=== PATIENT | male | born 1965 | race Caucasian/White ===

== ENCOUNTER → 2017-10-10 | Outpatient (CLI) | payer BC, OTHER | LOC: RESP 09:38 | PROVIDERS: ATTEND Orthopaedic Surgery | DX: Z01.818 Encounter for other preprocedural examination (principal) ==

== ENCOUNTER → 2017-10-10 | Outpatient (CLI) | payer BC, OTHER ==
--- NOTE | 2017-10-10 09:15 | RAD ---
4V right knee. Indication: KNEE PAIN Comparison: None. Impression: No acute fracture. Tricompartmental osteoarthritis noted and most pronounced medially where there are severe changes and [id number] appearance. Tiny suprapatellar knee effusion. MRI could better evaluate as clinically indicated. Multiple foci of ossification posterior to the joint capsule and lateral view. Chondrocalcinosis of the menisci suspected. Electronically signed by: Geo Wang MD 10/10/2017 9:14 AM [facility]
--- NOTE | 2017-10-10 09:15 | RAD ---
Two-view pelvis. Indication: HIP PAIN Comparison: None. Impression: No acute fracture. Mild pubic symphysis osteoarthritis. Electronically signed by: Geo Wang MD 10/10/2017 9:15 AM [facility]
== END ==
LOC: RAD 08:28
PROVIDERS: ATTEND Orthopaedic Surgery
DX: M17.11 Unilateral primary osteoarthritis, right knee (principal); M25.561 Pain in right knee; M25.551 Pain in right hip

== ENCOUNTER 2017-11-04 05:32 | Inpatient (IN) | payer BC, OTHER ==
--- NOTE | 2017-11-03 08:24 | HP ---
CHIEF COMPLAINT: Right knee pain. HISTORY OF PRESENT ILLNESS: Thierry is a 52-year-old male with a history of pain in the right knee that has been going on for years. He has had knee arthroscopy previously. He has had other injections as well. He denies any recent trauma, any neurologic symptoms or radiation of pain. Because of failure of conservative measures, he has requested operative intervention. After discussing the risks, benefits and alternatives to that, the patient has given informed consent. PAST SURGICAL HISTORY: 1. Knee arthroscopy. 2. Partial patellectomy. MEDICATIONS: None. ALLERGIES: NO KNOWN DRUG ALLERGIES. CODE STATUS: Full code. IMMUNIZATIONS: Up to date. SOCIAL HISTORY: The patient does not smoke or use any illicit drugs. He does drink one or two beers daily. FAMILY HISTORY: None pertinent to today's complaint. REVIEW OF SYSTEMS: Negative except as indicated in the History of Present Illness. PHYSICAL EXAMINATION: VITAL SIGNS: Blood pressure 126/78. Pulse 70. Height 6'. Weight 245 pounds. MENTAL STATUS: The patient is awake, alert, and is able to give a good history and participate in the physical. The patient is oriented to person, place and time. SKIN: Normal tone and turgor. HEENT: Normocephalic, atraumatic. Pupils equal, round and reactive. Mucosal membranes are moist. NECK: Normal range of motion. No thyromegaly, no lymphadenopathy. CHEST: Normal respiratory excursion. CARDIAC: Regular rate and rhythm. No murmurs, rubs or gallops. MUSCULOSKELETAL: The bilateral upper extremities show full active range of motion without pain. Sensation is intact. They are warm and well perfused. There is no deformity or crepitus. The left lower extremity shows full range of motion of the hip. The knee has full extension with flexion to about 125 degrees. There is no varus/valgus deformity. Sensation is intact. Strength is 5/5. The right lower extremity shows full range of motion of the hip. He has a slight varus deformity. Sensation is intact. It is warm and well perfused. Strength is 5/5. He has crepitus throughout his range of motion and diffusely. IMAGING: X-rays show advanced arthritis with varus deformity. ASSESSMENT: 1. Arthritis. PLAN: The plan at this point is for total knee arthroplasty. He has failed conservative measures and has requested that. We have discussed the risks, benefits, and alternatives to that and the patient has given informed consent. [facility][id number] [facility]
[2017-11-04] MEDS ORDERED: LACTATED RINGERS 1,000 ML ONE ×2 (05:47→06:09)
[2017-11-04] MEDS ORDERED: SODIUM CHL 0.9% 100ML MINI-BAG 100 ML IVPB ONE (05:47)
[2017-11-04] MEDS ORDERED: VANCOMYCIN HCL INJ 1,000 MG VIAL IVPB ONE ×4 (05:47→19:48)
[2017-11-04] MEDS ORDERED: ceFAZolin SODIUM 1 GM VIAL ONE ×2 (05:48→06:46)
[2017-11-04] MEDS ORDERED: SODIUM CHLORIDE 0.9% 250ML 250 ML ONE ×3 (05:48→19:48)
[2017-11-04] MEDS ORDERED: TRANEXAMIC ACID 1,000 MG/10 ML VIAL ONE (05:54)
[2017-11-04] MEDS ORDERED: SODIUM CHLORIDE 0.9% 100ML 100 ML IVPB ONE (05:59)
[2017-11-04] MEDS ORDERED: MORPHINE SULFATE *EPIDURAL* 0.5 MG/ML VIAL ONE (06:08)
[2017-11-04] MEDS ORDERED: MIDAZOLAM INJ 5 MG/5 ML VIAL ONE (06:08)
[2017-11-04] MEDS ORDERED: fentaNYL CITRATE INJ 50 MCG/ML AMP ONE (06:09)
[2017-11-04] MEDS ORDERED: ALUMINUM & MAGNESIUM HYDROXIDE 30 ML UD PO PRN (06:57)
[2017-11-04] MEDS ORDERED: ONDANSETRON INJ 4 MG/2 ML VIAL IV PRN (06:57)
[2017-11-04] MEDS ORDERED: MAGNESIUM HYDROXIDE 30 ML UD PO PRN (06:57)
[2017-11-04] MEDS ORDERED: SODIUM CHLORIDE 0.9% (FLUSH) 10 ML SYG IV PRN (06:57)
[2017-11-04] MEDS ORDERED: MORPHINE SULFATE INJ 10 MG/ML VIAL IM PRN (06:57)
[2017-11-04] MEDS ORDERED: ZOLPIDEM TARTRATE 5 MG TAB PO PRN (06:57)
[2017-11-04] MEDS ORDERED: BISACODYL SUPPOSITORY 10 MG PR PRN (06:57)
[2017-11-04] MEDS ORDERED: PROMETHAZINE HCL INJ 12.5 MG in SODIUM CHLORIDE 0.9% 50ML 50 ML IVPB PRN (06:57)
[2017-11-04] MEDS ORDERED: ACETAMINOPHEN 325 MG TAB PO PRN (06:57)
[2017-11-04] MEDS ORDERED: ACETAMINOPHEN 500 MG TAB PO PRN (06:57)
[2017-11-04] MEDS ORDERED: NALOXONE HCL INJ 0.4 MG/ML VIAL IV PRN (06:57)
[2017-11-04] MEDS ORDERED: TRANEXAMIC ACID INJ 1,000 MG in SODIUM CHLORIDE 0.9% 100ML 100 ML IVPB ONE (06:57)
[2017-11-04] MEDS ORDERED: BENZOCAINE-MENTH LOZ (CEPACOL) 1 EA LOZ MT PRN (06:57)
[2017-11-04] MEDS ORDERED: TEMAZEPAM 15 MG CAP PO PRN (06:57)
[2017-11-04] MEDS ORDERED: PROMETHAZINE HCL INJ 25 MG in SODIUM CHLORIDE 0.9% 50ML 50 ML IVPB PRN (06:57)
[2017-11-04] MEDS ORDERED: MORPHINE SULFATE INJ 10 MG/ML VIAL IV PRN (06:57)
[2017-11-04] MEDS ORDERED: MORPHINE PCA 1 MG/ML 100 ML BAG IVPB SCH (07:00)
[2017-11-04] MEDS ORDERED: BUPIVACAINE 0.25% W/EPI 50 ML VIAL INJ ONE (08:45)
[2017-11-04] MEDS ORDERED: MAGNESIUM OXIDE 400 MG TAB PO SCH (09:00)
[2017-11-04] MEDS ORDERED: PROPOFOL 200 MG/20 ML VIAL IV ONE (10:00)
[2017-11-04] MEDS ORDERED: LIDOCAINE 1% 10 ML VIAL INJ ONE (10:00)
[2017-11-04] MEDS ORDERED: DEXAMETHASONE INJ 10 MG/ML VIAL IV ONE (10:00)
[2017-11-04] MEDS ORDERED: ONDANSETRON INJ 4 MG/2 ML VIAL IV ONE (10:00)
[2017-11-04] MEDS: CELECOXIB 100 MG CAP PO SCH ×2 (10:25→17:14)
[2017-11-04] MEDS ORDERED: diphenhydrAMINE HCL 50 MG/ML VIAL IM PRN (10:57)
[2017-11-04] MEDS ORDERED: diphenhydrAMINE HCL 25 MG CAP PO PRN (10:57)
[2017-11-04] MEDS ORDERED: diphenhydrAMINE HCL 50 MG/ML VIAL IV PRN (10:57)
[2017-11-04] MEDS: DEX 5% W/NACL 0.45% 1000ML 1,000 ML IVS PRN (11:06)
[2017-11-04] MEDS: IV SET AND CAP CHANGE INJ INJ SCH (12:21)
--- NOTE | 2017-11-04 14:39 | CONS ---
SUPERVISING PHYSICIAN: Juan Pablo Castro MD DATE OF CONSULTATION: 11/04/17 REASON FOR CONSULTATION: Postoperative right total knee arthroplasty. HISTORY OF PRESENT ILLNESS: Mr. Lombardi is a 52-year-old male patient that has a longstanding history of knee pain for many years. 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 He denied any trauma, but has failed to have any significant relief from injections or physical therapy and other conservative measures. He requested operative intervention to help with pain control to assist with returning the patient back to a status such that he could function without any pain. He had an elective right total knee arthroplasty on 11/04/17 and was seen in the immediate postoperative state. At time of admission, the patient was alert with good pain control. PAST MEDICAL HISTORY: No major medical history. PAST SURGICAL HISTORY: 1. Right knee arthroscopy. 2. Partial patellectomy. CURRENT MEDICATIONS: No chronic medications. ALLERGIES: NO KNOWN DRUG ALLERGIES. FAMILY HISTORY: Noncontributory. SOCIAL HISTORY: The patient lives in [place], [place]. 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 He does not that he drinks on an occasional basis, typically beer, and does utilize smokeless tobacco, but has never smoked tobacco. He denies any illicit drug use. REVIEW OF SYSTEMS: CONSTITUTIONAL: Denies any weight loss, weakness. HEENT: Denies earaches, sore throats, nasal congestion, headaches. RESPIRATORY: Denies cough, shortness of breath, wheezing. CARDIOVASCULAR: Denies chest pain, palpitations or syncopal episodes. GASTROINTESTINAL: No reported nausea, vomiting, diarrhea, constipation or bowel habits changes. GENITOURINARY: Denies dysuria, hematuria, polyuria, nocturia or other urinary symptoms. MUSCULOSKELETAL: As noted in history of present illness, right knee requiring surgery. NEUROLOGIC: Denies any neurologic deficits such as dizziness, seizure or syncopal episodes or other localizing or focalizing neuro deficits. PHYSICAL EXAMINATION: VITAL SIGNS: Temperature 97.8. Pulse 68. Blood pressure 104/64. Respirations 14. Saturation 98% on room air. Admission 108.8 kg. GENERAL: The patient is seen in immediate postoperative condition and was alert and oriented times 3. He appeared to be comfortable and in no acute distress. HEENT: Tympanic membranes clear bilaterally. Oropharynx is pink, moist without any lesions. NECK: Supple, nontender with full range of motion. No jugular venous distention noted. RESPIRATORY: Lungs clear to auscultation bilaterally without any rhonchi, wheezes, or rales. CARDIOVASCULAR: Regular rate and rhythm without any appreciable murmurs, gallops, or rubs. ABDOMEN: Soft, nontender. Hypoactive bowel sounds. EXTREMITIES: Right knee has large surgical dressing in place with Iceman. Distally, pulses were strong with brisk capillary refill. NEUROLOGIC: The patient is alert and oriented times three. Cranial nerves II- XII are grossly intact. Facial features are symmetrical. Extraocular movements are within normal limits. There is no nystagmus noted. LABORATORY: Postoperative hemoglobin and hematocrit pending. ASSESSMENT: 1. Postoperative day 0 for an elective right total knee arthroplasty, having failed to respond to outpatient conservative treatment measures with surgery performed by Dr. Nikolas Bill, orthopedic surgeon. 2. Nicotine addiction with smokeless tobacco. PLAN: We will follow the patient as he continues with his recovery and physical therapy efforts along with physical therapy and orthopedic services. Discussion with family and patient. Plans are at discharge to continue with [facility]. We will encourage the patient to utilize incentive spirometry and do deep breathing exercises as well as exercise lower extremities as much as possible to prevent postoperative complications such as atelectasis or DVT. He remains on DVT prophylaxis per postoperative orthopedic protocol. We will anticipate discharge in the next 2 to 3 days pending the patient's progression with physical therapy. Until then, we will continue to monitor the patient closely and treat appropriately. #[id number] [facility]
[2017-11-04] MEDS ORDERED: ceFAZolin SODIUM 2 GRAMS PREMI 50 ML IVPB ONE ×2 (15:48→19:47)
[2017-11-04] MEDS: ceFAZolin SODIUM 2 GRAMS PREMI 2 GM in PREMIX BAG 1 BAG IVPB SCH (16:09)
[2017-11-04] MEDS: VANCOMYCIN HCL INJ 1,000 MG in SODIUM CHLORIDE 0.9% 250ML 250 ML IVPB SCH (17:16)
[2017-11-04] MEDS: ENOXAPARIN SODIUM 30 MG/0.3 ML SYG SUBCU SCH (21:34)
[2017-11-04] MEDS: DOCUSATE CALCIUM 240 MG CAP PO SCH (21:34)
--- NOTE | 2017-11-04 23:24 | PCM.CORE ---
Physician DVT/VTE - Prophylaxis Currently: Patient already on anticoagulation therapy - Nurse DVT Assessment & Total Each Risk Factor Represents 5 Points: Elective Arthtroplasty Each Risk Factor Represents 1 Point: Hx of smoking past year Each Risk Factor is 1 Point: Obesity (BMI >25) DVT Assessment Score: 7 - 5 or more Very High Risk Treatments: Early Ambulation *, Sequential Compression Device Pharmacological: Enoxaparin 30mg SQ BID
[2017-11-05] MEDS: ceFAZolin SODIUM 2 GRAMS PREMI 2 GM in PREMIX BAG 1 BAG IVPB SCH ×2 (00:08→08:27)
[2017-11-05] MEDS: HYDROcodone 5MG/APAP 325MG 1 EA TAB PO PRN ×6 (00:36→20:22)
[2017-11-05] MEDS: VANCOMYCIN HCL INJ 1,000 MG in SODIUM CHLORIDE 0.9% 250ML 250 ML IVPB SCH (06:27)
--- NOTE | 2017-11-05 07:25 | RAD ---
EXAM DESCRIPTION: Knee,Right 2 or More Views CLINICAL HISTORY: 52 years Male, TKA COMPARISON: None. FINDINGS: 2 views of the right knee show postoperative changes related to recent right knee arthroplasty. No loosening or other hardware complication is identified. No periprosthetic fracture is identified. Gas and fluid in the right knee joint space is consistent with recent surgery. IMPRESSION: Postoperative changes in the right knee without apparent hardware or other surgical complication. Electronically signed by: Renny Barnes MD 11/05/2017 7:23 AM CDT
[2017-11-05] MEDS ORDERED: ceFAZolin SODIUM 2 GRAMS PREMI 50 ML IVPB ONE (07:48)
[2017-11-05] MEDS: CELECOXIB 100 MG CAP PO SCH ×2 (07:53→16:29)
[2017-11-05] MEDS: MAGNESIUM OXIDE 400 MG TAB PO SCH (08:24)
[2017-11-05] MEDS: ENOXAPARIN SODIUM 30 MG/0.3 ML SYG SUBCU SCH ×2 (08:25→21:53)
--- NOTE | 2017-11-05 08:45 | PN ---
DATE: 11/04/17 POSTOPERATIVE CHECK SUBJECTIVE: Mr. Lombardi is doing well and has good pain control at this point. OBJECTIVE: Afebrile. Vital signs stable. Dressing is clean, dry and intact. ASSESSMENT: Status post total knee arthroplasty. PLAN: He will begin weight-bearing as tolerated on postoperative day1. #[id number] [facility]
--- NOTE | 2017-11-05 08:50 | OP ---
DATE OF PROCEDURE: 11/04/17 PREOPERATIVE DIAGNOSIS: 1. Right knee osteoarthritis. POSTOPERATIVE DIAGNOSIS: 1. Right knee osteoarthritis. PROCEDURE: 1. Right total knee arthroplasty. SURGEON: Nikolas Bill MD. RECRUITMENT COORDINATOR: Taurus Carballo CST, SA-C. ANESTHESIA: General. COMPLICATIONS: None. FINDINGS: Severe osteoarthritis with varus deformity. INDICATION: Mr. Lombardi has a long history of pain in the knee that has been refractory to conservative measures. He requested operative intervention secondary to failure of conservative measures. After discussing the risks, benefits and alternatives to that, the patient has given informed consent for total knee arthroplasty. PROCEDURE: The patient was brought to the Operating Room and placed in supine position. General anesthesia was induced and the patient's leg was sterilely prepped and draped. Following prepping and draping, the distal femur was exposed and using an intramedullary guide, the distal femoral cut was made. The appropriate sized cutting block was measured, pinned into place, and the anterior, posterior, and chamfer cuts were made. The ACL was transected and the tibia was subluxed. Both the medial and lateral menisci were removed. An intramedullary guide was used to make the proximal tibial cut. The appropriate sized base plate was placed and a trial polyethylene was placed. The trial femur was placed, the knee was reduced, and the knee was taken through a range of motion. The knee was stable in anterior, posterior, varus and valgus stress. The patella tracked anatomically without evidence of subluxation or dislocation. After trialing, the trial components were removed and the bony surfaces were thoroughly irrigated with saline. Following irrigation, the surfaces were dried and the final components were cemented into place. The excess cement was removed and the remaining cement was allowed to cure. The knee was again taken through a range of motion to confirm stability. The wound was then irrigated with saline and closure was performed using PDS to approximate the arthrotomy followed by closure of the subcutaneous tissues with a combination of running and interrupted Monocryl sutures. Sterile dressing was placed. The patient was awoken from anesthesia and taken to Recovery. POSTOPERATIVE INSTRUCTIONS: The patient will be weight-bearing as tolerated on postoperative day 1. COMPONENTS: [place] Triathlon knee, size 6 femur, size 6 tibia, 11 mm insert. #[id number] [facility]
[2017-11-05] MEDS: CYCLOBENZAPRINE HCL 10 MG TAB PO PRN ×2 (12:13→20:23)
[2017-11-05] MEDS: DEX 5% W/NACL 0.45% 1000ML 1,000 ML IVS PRN (13:42)
--- NOTE | 2017-11-05 13:59 | PN ---
SUPERVISING PHYSICIAN: Juan Pablo Castro MD DATE: 11/05/17 SUBJECTIVE: The patient is up to the bedside chair this morning. He has had very good control of his pain. He does continue to have some itching with the morphine, but refuses Benadryl as it makes him sleepy until at least after his therapy. He has had no nausea or vomiting and actually had gas, but has not yet had a bowel movement. OBJECTIVE: VITAL SIGNS: Temperature 98.1. Pulse 64. Blood pressure 126/75. Respirations 16. Saturation 99% on room air. I&Os show negative balance of 2460 with 1990 in, 4450 out. Weight 108.8 kg. CHEST: Lungs clear to auscultation bilaterally. HEART: Regular rate and rhythm. ABDOMEN: Obese, but soft and nontender. Positive bowel sounds. EXTREMITIES: Right knee continues with a bulky dressing and Gamal bandage. Pulses distally are strong with brisk capillary refill. NEUROLOGIC: Alert and oriented times three. LABORATORY: Postoperative hemoglobin and hematocrit this morning shows hemoglobin 12.7, hematocrit 36.9. ASSESSMENT: 1. Postoperative day 1 for a right total knee arthroplasty, having failed to respond to outpatient conservative treatment measures requiring surgical intervention for symptom control with surgery performed by Dr. Nikolas Bill, orthopedic surgeon. 2. Nicotine addiction with smokeless tobacco. PLAN: We will continue to follow the patient as he progresses through his physical therapy efforts under the direction of physical therapy and orthopedic services. The patient continues to have some mild itching and again refuses Benadryl. We will encourage continued pain management to assist with his pain control and help in facilitating his physical therapy efforts. He is again encouraged to stop using smokeless tobacco. Once discharged, the patient has expressed that he is willing to do physical therapy at the [facility]. Until the patient is clinically stable and improved and met goals, we will continue to monitor the patient closely and treat appropriately. #[id number] [facility]
[2017-11-05] MEDS: DOCUSATE CALCIUM 240 MG CAP PO SCH (20:22)
[2017-11-06] MEDS: HYDROcodone 5MG/APAP 325MG 1 EA TAB PO PRN ×3 (02:28→12:35)
[2017-11-06] MEDS: CELECOXIB 100 MG CAP PO SCH ×2 (08:03→16:24)
[2017-11-06] MEDS: CYCLOBENZAPRINE HCL 10 MG TAB PO PRN ×2 (08:03→16:24)
[2017-11-06] MEDS: MAGNESIUM OXIDE 400 MG TAB PO SCH (08:03)
[2017-11-06] MEDS: SODIUM CHLORIDE 0.9% (FLUSH) 10 ML SYG IV SCH ×2 (08:04→21:07)
[2017-11-06] MEDS: ENOXAPARIN SODIUM 30 MG/0.3 ML SYG SUBCU SCH ×2 (09:31→21:06)
[2017-11-06] MEDS: traMADol HCL 50 MG TAB PO PRN ×2 (10:37→18:02)
--- NOTE | 2017-11-06 13:08 | PN ---
DATE: 11/06/17 SUBJECTIVE: Mr. Lombardi is doing well. He has great pain control right now. OBJECTIVE: Afebrile. Vital signs stable. Wound is clean. There are no signs or symptoms of infection. ASSESSMENT: Status post total knee arthroplasty. PLAN: At this point, the plan for him is to continue with weight-bearing as tolerated and increasing range of motion. #[id number] [facility]
--- NOTE | 2017-11-06 14:12 | PN ---
DATE: 11/06/17 SUBJECTIVE: The patient now is second day postoperative replacement of his right total knee with arthroplastic procedure performed by Dr. Bill, orthopedic surgeon. He tolerated the procedure quite well. His pain today is slightly better than it was yesterday. Still significant discomfort when trying to hold the leg extended against gravity, but tolerating weight-bearing fairly well. Again encouraged to take deep breaths and to actively contract and relax muscles to assist with DVT prophylaxis. The patient is awake and alert. OBJECTIVE: VITAL SIGNS: Afebrile. Blood pressure 121/69. Pulse 75. Pulse oximetry 96% on room air. GENERAL: The patient is awake and alert. LUNGS: Clear. HEART: Regular. ABDOMEN: Soft. EXTREMITIES: Wound of the right knee is clean with dressing having been changed earlier this morning with no significant drainage noted. The patient continues with physical therapy and is up to 100 degrees of flexion. ASSESSMENT: 1. Postoperative day 2 for a right total knee arthroplasty, having failed to respond to outpatient therapy, requiring surgical intervention to assist with symptom control, performed by Dr. Nikolas Bill, orthopedic surgeon. 2. Chronic nicotine addiction, currently with smokeless tobacco, encouraged to stop. PLAN: Continue with rehabilitation until he is able to safely return home. 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 Close followup suggested. #[id number] [facility]
[2017-11-06] MEDS: HYDROcodone 7.5MG/APAP 325MG 1 EA TAB PO PRN ×2 (16:23→21:06)
[2017-11-06] MEDS: DOCUSATE CALCIUM 240 MG CAP PO SCH (21:06)
[2017-11-07] MEDS: CYCLOBENZAPRINE HCL 10 MG TAB PO PRN (05:44)
[2017-11-07] MEDS: HYDROcodone 7.5MG/APAP 325MG 1 EA TAB PO PRN (05:44)
[2017-11-07] MEDS: IV SET AND CAP CHANGE INJ INJ SCH (07:50)
--- NOTE | 2017-11-07 07:54 | PN ---
DATE: 11/07/17 SUBJECTIVE: Mr. Lombardi is doing well. He has good pain control. OBJECTIVE: Afebrile. Vital signs stable. Wound is clean. There are no signs or symptoms of infection. ASSESSMENT: Status post total knee arthroplasty. PLAN: The plan at this point is for him to continue with therapy and we will send him home. He has been given appropriate instructions on wound care and we will see him in about two weeks. [facility][id number] [facility]
[2017-11-07] MEDS: CELECOXIB 100 MG CAP PO SCH (08:14)
[2017-11-07] MEDS: traMADol HCL 50 MG TAB PO PRN (08:15)
[2017-11-07] MEDS: SODIUM CHLORIDE 0.9% (FLUSH) 10 ML SYG IV SCH (09:52)
[2017-11-07] MEDS: MAGNESIUM OXIDE 400 MG TAB PO SCH (09:53)
[2017-11-07] MEDS: ENOXAPARIN SODIUM 30 MG/0.3 ML SYG SUBCU SCH (09:53)
[2017-11-07] MEDS ORDERED: ONDANSETRON 4 MG TAB PO PRN (10:30)
--- NOTE | 2017-11-07 11:11 | DS ---
DISCHARGE DIAGNOSIS: 1. Postoperative day 3 for a right total knee arthroplasty, having failed to respond to outpatient therapy, requiring surgical intervention to assist with symptom control, performed by Dr. Nikolas Bill, orthopedic surgeon. 2. Chronic nicotine addiction, currently with smokeless tobacco, encouraged to stop. HISTORY OF PRESENT ILLNESS: This 52-year-old, white male was admitted on for elective orthopedic surgical intervention because of significant right knee pain requiring a total knee replacement with arthroplasty performed on the day of admission. The procedure was well tolerated. The patient was discharged eventually to the rehab bed under the supervision of orthopedist and physical therapy with medical support. His rehabilitation continued for about three days until it was safe for him to continue with rehabilitation as an outpatient from home. The patient had a history of longstanding knee pain for many years. 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 LABORATORY: Repeat blood count after surgery showed hemoglobin 12.7. Urinalysis showed a trace of hematuria and pyuria with rare bacteria and no culture obtained. X-ray of the knee showed satisfactory placement of the prosthesis within the right knee joint. HOSPITAL COURSE: The patient tolerated his ongoing and increasing activity with physical therapy and rehabilitation. He required analgesic control as well as muscle spasm treatment and showed steady improvement to the point where physical therapy said it would be safe for him to return home with continued rehabilitation in the outpatient wellness department. PLAN: The patient is discharged home with followup with Dr. Bill in the clinic at 9:30 AM on 11/21/17. Please refer to home medication list which includes Xarelto for an additional 9 days, some pain medicines as well as Flexeril muscle spasm relaxing medication. He is to stay active, breathe deeply and actively participate in his DVT prophylactic program. [facility]up [facility] for continued rehab. Return if not improving. #[id number] [facility]
[2017-11-07 11:41] VITALS: BP 113/73; TEMP 98.1; O2SAT 95
[2017-11-07] MEDS ORDERED: BISACODYL SUPPOSITORY 10 MG PR ONE (21:00)
[2017-11-07] MEDS ORDERED: MAGNESIUM HYDROXIDE 30 ML UD PO ONE (21:00)
== END 2017-11-07 11:25 | disposition home or self-care (01) | DRG 470 ==
LOC: AMB 05:32 → MS 10:20
PROVIDERS: ADMIT Orthopaedic Surgery; ATTEND Emergency Medicine
PROC: 0SRC0J9 Replacement of Right Knee Joint with Synthetic Substitute, Cemented, Open Approach (ICD-10-PCS; principal; 2017-11-04 07:00)
DX: M17.11 Unilateral primary osteoarthritis, right knee (principal); M21.161 Varus deformity, not elsewhere classified, right knee; F17.290 Nicotine dependence, other tobacco product, uncomplicated; R31.9 Hematuria, unspecified; E66.9 Obesity, unspecified; L29.9 Pruritus, unspecified; T40.2X5A Adverse effect of other opioids, initial encounter; Z68.32 Body mass index [BMI] 32.0-32.9, adult